=== PATIENT | male | born 1960 | race Caucasian/White ===

== ENCOUNTER 2017-03-13 08:11 | Day surgery (SDC) | payer OTHER ==
[~2017-03-13] VITALS: Ht 182.9 cm; Wt 99.1 kg
[2017-03-13 08:53] VITALS: Ht 182.9 cm; Wt 99.1 kg
[2017-03-13] MEDS ORDERED: LOSA1TAB19 PO (09:14)
[2017-03-13] MEDS ORDERED: SIMV-39 PO (09:14)
[2017-03-13] MEDS ORDERED: METF500T4 PO (09:14)
[2017-03-13 09:27] VITALS: BP 137/88; PULSE 64; RESP 12
[2017-03-13] MEDS ORDERED: PROPOFOL 20 ML ONE (09:29)
[2017-03-13 09:46] VITALS: BP 137/88; PULSE 64; RESP 18
--- NOTE | 2017-03-13 11:44 | GILP ---
DATE OF PROCEDURE: 03/13/2017 NAME OF PROCEDURES: Colonoscopy and polypectomy. SURGEON: Micah Ulloa MD PREOPERATIVE DIAGNOSIS: Screening colonoscopy. POSTOPERATIVE DIAGNOSES: 1. Colonoscopy all the way to the cecum. 2. Two sigmoid colon polyps were removed using the snare and electrocautery. 3. Internal hemorrhoids. INDICATION FOR THE PROCEDURE: Mr. Jaswinder Isaacs is a 57-year-old male patient who was scheduled fo r screening colonoscopy. The procedure and possible complications are well explained to the patient. The patient understood and consented to the procedure. DESCRIPTION OF PROCEDURE: Under the influence of anesthesia, the colonoscope was carefully introduc ed in the rectum and under direct vision, it was advanced all the way to the cecum. FINDINGS: The patient had 2 sigmoid colon polyps and they were removed using the snare and electroc autery. The patient was noted to have internal hemorrhoids. He tolerated the procedure very well and there was no complication from the procedure. At the end o f the procedure, he was awake with stable vital signs and he was discharged home to the care of his family. IMPRESSION: 1. Colonoscopy all the way to the cecum. 2. Two sigmoid colon polyps were removed using the snare and electrocautery. 3. Internal hemorrhoids. PLAN: 1. Await histopathology report. 2. Next screening colonoscopy in 5 years. Dictated By: MICAH LEON/ALYSSA Conf#: [id number] DID#: [id number] CC: MICAH ULLOA MD;*EndCC*
== END 2017-03-13 13:30 | disposition home or self-care (01) ==
LOC: GIL 08:11
PROVIDERS: ATTEND Internal Medicine Gastroenterology
DX: Z12.11 Encounter for screening for malignant neoplasm of colon (principal); D12.5 Benign neoplasm of sigmoid colon; E11.9 Type 2 diabetes mellitus without complications; I10 Essential (primary) hypertension; E78.5 Hyperlipidemia, unspecified; F17.200 Nicotine dependence, unspecified, uncomplicated
CPT/HCPCS: 45380; 82962; 88305; Z7610